=== PATIENT | male | born 1950 | race Caucasian/White ===

== ENCOUNTER 2019-11-24 08:06 | Outpatient (CLI) | payer MEDICARE, OTHER, SELFPAY ==
[2019-11-24 08:17] VITALS: BMI 29.0
--- NOTE | 2019-11-24 09:31 | ECG_ITS ---
NAME OF STUDY: LEXISCAN SESTAMIBI STRESS TEST INDICATION: OLD DC LEXISCAN STRESS TEST ORDERING PHYSICIAN: Jem CLINICAL INFORMATION: Chest pain INTERPRETATION: 1. The patient was brought to the laboratory where Lexiscan was infused over 20 seconds. The resting blood pressure was 149/99. Maximum blood pressure was 149/99. The resting heart rate was 79 beats per minute. The maximum heart rate is 128 beats per minute. 2. The baseline electrocardiogram reveals sinus rhythm with late transition and nondiagnostic Q waves in the inferior leads 3. With Lexiscan infusion, there were no ST segment changes to suggest ischemia. 4. The patient experienced no symptoms or arrhythmias during the examination. CONCLUSION: 1. Unremarkable Lexiscan infusion. 2. Nuclear imaging to follow. Electronically Signed On 11-24-2019 11:30:24 TECHNICIAN TERMINAL AND REPEATER by Suresh Mcclleland M.D. [email or web address]
--- NOTE | 2019-11-24 09:32 | NMCV_ITS ---
NM asad perf SPECT r/s* [id number] Howie Alarcon Age: 69 Gender: M : 1950 Exam Date: 11/24/2019 09:44 Ordering Phys: Chelsea Parish MD ([email or web address]) Technologist: ANJU Dang Exam Location: [facility] Indications: Old [place] STRESS TEST [facility] IMAGE PROTOCOL Rest/Stress 1 Lexiscan Day Radiopharmaceutical Dose (mCi) Administration Site Administered by Rest: Tc-99m 10.9 IV ANJU Dang Sestamibi Stress:Tc-99m 32.6 IV ANJU Dang Sestamianthony Rest: 24-Nov-2019 60 Discovery 630 Stress: 24-Nov-2019 45 Discovery 630 0.4mg Lexiscan. Images obtained in supine and prone position. SPECT RESULTS Technical Quality: Good Raw Data Analysis: Subdiaphragmatic activity Image Corrections: No attenuation or motion correction applied Summed Stress Score: 12 Summed Rest Score: 14 Summed Difference Score: 3 PERFUSION FINDINGS Timmy perfusion imaging revealing a moderate to large area of severely decreases uptake in the basal and mid inferolateral, mid and apical inferior, mid anteroseptal, apical septal and LV apex. Some reversibility was noted in the apical lateral and LV apex, with respect to the supine imaging. However, based on the prone SPECT imaging, no significant reversibility were noted . FUNCTIONAL RESULTS (calculated via Gated SPECT) Stress Image LV EF (%): 56 Stress EDV (mL):82 TID: 0.83 Stress ESV (mL):36 FUNCTIONAL FINDINGS: Segmental wall motion analysis revealing no gross wall motion abnormalities. IMPRESSIONS 1. Myocardial perfusion may revealing moderate to large area of decreased tracer uptake in the inferior, inferolateral, septal and apical regions with a subtle area of reversibility in the apex and apical lateral region, may suggest myocardial scarring with very small areas of taina-infarction ischemia. However because of the inconsistency of these findings with the prone imaging, the reliability is questionable. Clinical correlation is recommended 2. Normal LV ejection fraction 56%. 3. LV wall motion is revealing no gross wall motion normalities. 4. Normal LV volume. 5. Normal transient ischemic dilatation ratio. Dr Jayant Stevens MD FACC (Electronically Signed) Final Date: 24 November 2019 13:15 S
--- NOTE | 2019-11-24 11:00 | SUR.PREOP ---
Patient reports no pain or discomfort prior to the start of the procedure.
[2019-11-24] MEDS: regadenoson 0.4 Mg/5 ml Syringe IVP (11:03)
[2019-11-24 11:10] VITALS: BP 129/85; PULSE 96
== END 2019-11-24 08:07 | disposition home or self-care (01) ==
LOC: CDL 08:12
PROVIDERS: Family Provider Nurse Practitioner; Visit Provider Internal Medicine Cardiovascular Disease
DX: I25.2 Old myocardial infarction (principal)
CPT/HCPCS: 78452; 93017; A9500; J2785

== ENCOUNTER 2020-05-21 09:01 | Outpatient (CLI) | payer MEDICARE, OTHER, SELFPAY ==
--- NOTE | 2020-05-21 09:10 | CT_ITS ---
WS: [id number] LDCT LUNG CANCER SCREENING TECHNIQUE: Noncontrast CT of the chest with coronal and sagittal reformatted images. CLINICAL INFORMATION: H/O TOBACCO USE COMPARISON: CT chest December 23, 2018 DLP: 81.25 mGy.cm DIvol: 2.[address] scans at [facility] use at least one of these dose optimization techniques: automat ed exposure control; mA and/or kV adjustment per patient size (includes targeted exams where dose is matched to clinical indication); or iterative reconstruction. FINDINGS: Moderate chronic emphysematous changes with periseptal and centrilobular emphysema. No acute pulmonar y infiltrates. No focal pneumonia or pleural fluid. Subsegmental atelectasis/fibrosis in the left low er lobe and lingula. Noncalcified pulmonary nodule left lower lobe laterally measuring 4 mm. No mediastinal or hilar lymphadenopathy aortic calcification. Coronary calcification. No axillary lym phadenopathy. Small esophageal hiatal hernia. CT/CT lung screening [id number] IMPRESSION: LUNG-RADS: 2-Benign Appearance or Behavior FOLLOW UP: 12 Month: Continue annual screening with LDCT
[2020-05-21 10:03] VITALS: O2SAT 88; O2SAT 96
--- NOTE | 2020-05-21 15:33 | PFTS_ITS ---
Date of Study:05/21/20 Date of Dictation: MECHANICS: Forced vital capacity (FVC) is reduced. Forced expiratory volume in one second (FEV1) is reduced. FEV1/FVC is reduced. FLOW VOLUME LOOP: Reduced flow at all lung volumes with significant scooping. LUNG VOLUMES: Total lung capacity (TLC) is normal. Residual volume (RV) is increased. DIFFUSING CAPACITY FOR CARBON MONOXIDE: Moderately reduced. INTERPRETATION: The pulmonary function tests are consistent with severe airflow obstruction. There is significant postbronchodilator response. Lung volumes are consistent with air trapping. Gas exchange (DLCO) is moderately reduced. MTDD
== END 2020-05-21 09:02 | disposition home or self-care (01) ==
LOC: RAD 09:05
PROVIDERS: PCP Nurse Practitioner; Visit Provider Internal Medicine Critical Care Medicine
DX: J44.9 Chronic obstructive pulmonary disease, unspecified (principal); Z87.891 Personal history of nicotine dependence
CPT/HCPCS: 94060; 94726; 94729; G0297; J7611